=== PATIENT | female | born 1950 | race Caucasian/White ===

== ENCOUNTER 2017-02-13 17:06 | Emergency (ER) | payer MEDICARE, BC ==
[2017-02-13] MEDS ORDERED: Ondansetron INJ* 2 MG/ML VIAL IV ONE (18:03)
[2017-02-13] MEDS ORDERED: Morphine INJ* 4 MG/ML 1 ML SYRINGE IV ONE (18:03)
[2017-02-13] MEDS ORDERED: Iohexol 350* (CONTRAST) 500 ML MDV IV ONE (18:09)
[2017-02-13] MEDS: NS 0.9% 1000 ML* 2,000 ML IV ONE ×2 (18:12→18:13)
[2017-02-13 18:20] LABS: Hematocrit 40 % (35-47); Hemoglobin 13.4 g/dl (12.0-16.0); Mean Corpuscular HGB Conc 34 g/dl (31-36); Mean Corpuscular Hemoglobin 34 pg (27-31); Mean Corpuscular Volume 101 fL (80-97); Mean Platelet Volume 8 um3 (7.4-10.4); Red Blood Count 3.95 10^6/ul (4.0-5.4); Red Cell Distribution Width 13 % (10.5-15); White Blood Count 5.6 10^3/ul (3.5-10.8)
[2017-02-13 18:48] LABS: Troponin I 0.01 ng/mL (<0.04)
--- NOTE | 2017-02-13 18:56 | RAD ---
INDICATION: Abdominal aortic aneurysm evaluate for dissection. COMPARISON: Comparison is made with a prior CT of the abdomen and pelvis from January 08, 2009 and a prior abdominal ultrasound from May 29, 2015. TECHNIQUE: A CT angiogram of the chest, abdomen and pelvis was performed with intravenous contrast following intravenous injection of 97 ml of Omnipaque 350 nonionic contrast. Contiguous axial sections were obtained from the lung apices through the symphysis pubis. Images were reconstructed in the coronal and sagittal planes and in a 3-D volume rendered reformatted. FINDINGS: CT ANGIOGRAM OF THE CHEST: There is relatively homogeneous opacification of the pulmonary arteries. No intraluminal filling defect or pulmonary embolism is seen. The heart is upper limits of normal in size. No pericardial effusion is present. The descending thoracic aorta is mildly ectatic. There is homogeneous opacification of the thoracic aorta without evidence for dissection in the thoracic region. No significant enlarged mediastinal or hilar lymph nodes are seen. The lungs are clear. No pleural effusion is seen. CT ANGIOGRAM OF THE ABDOMEN AND PELVIS: There is an aneurysm of the infrarenal distal abdominal aorta. This measures a maximum of 4.6 cm in transverse dimension and measures 8.5 cm in length. The aorta previously measured a maximum of 3.4 cm in transverse dimension on the prior ultrasound study. There is a dissection of this aneurysm which extends into the proximal portion of both common iliac arteries which are ectatic. The celiac and superior mesenteric arteries are patent. There there is moderate narrowing of both arteries at their origins. The inferior mesenteric artery is also patent and arises from the region of the aortic dissection. There are single bilateral renal arteries without hemodynamically significant stenosis. The liver and spleen are normal in size without significant focal abnormality. No calcified gallstones are seen. The pancreas appears normal in size. There is mild pancreatic ductal distention. The kidneys and adrenal glands are normal in size. No hydronephrosis is seen. No significant focal renal abnormality is seen. The stomach, small and large bowel appear nondistended. There is a pessary device present. No free intraperitoneal air or fluid is seen. No significant focal osseous abnormality is seen. The results of this exam were discussed with the referring clinician. IMPRESSION: THERE IS A DISSECTING ANEURYSM OF THE DISTAL ABDOMINAL AORTA WHICH EXTENDS INTO THE COMMON ILIAC ARTERIES. THE ANEURYSM MEASURES A MAXIMUM OF 4.6 CM IN TRANSVERSE DIMENSION AND HAS INCREASED SIGNIFICANTLY IN SIZE FROM THE PRIOR STUDY. RECOMMEND VASCULAR SURGERY CONSULTATION.
[2017-02-13 19:27] LABS: Albumin 4.2 g/dL (3.2-5.2); BUN/Creatinine Ratio 20.3 (8-20); C Reactive Protein 55.91 mg/L (< 5.00); Calcium 9.4 mg/dL (8.6-10.3); EGFR African American 109.1 (>60); EGFR Non-African American 84.9 (>60); Potassium 3.7 mmol/L (3.5-5.0); Total Protein 7.2 g/dL (6.4-8.9)
--- NOTE | 2017-02-13 19:47 | ED ---
I, Oh,Yo, scribed for Summer Davis MD on 02/13/17 at 1807 . Abdominal Pain/Female - HPI Summary HPI Summary: This 67 y/o female presents to ED for bilat lower abd pain since 2 days ago. Pt had brief episode of abd pain that spontaneously resolved itself 3 days ago. Abd pain came back 2 days ago in the morning, and has been constant since then. Pain does not radiate to back. Negative n/v/d. Pain is worse with palpation. PMHx is significant for known AAA. Pt was referred to ED by her primary care provider, Dr. Jasmin Siddiqi, who was concerned that AAA had gotten bigger and pulsating. Other PMHx also includes HTN that is controlled by Lisinopril. FHx is positive for HTN to sister. Nonsmoker and nondrinker. - History of Current Complaint Chief Complaint: EDAbdPain Stated Complaint: LOWER ABD PAIN Time Seen by Provider: 02/13/17 17:45 Hx Obtained From: Patient, Medical Records Onset/Duration: Sudden Onset, Lasting Days, Still Present Timing: Constant Pain Intensity: 8 Pain Scale Used: 0-10 Numeric Location: Discrete At: RUQ, Discrete At: LUQ Radiates: No Character: Dull Aggravating Factor(s): Nothing Alleviating Factor(s): Nothing Associated Signs and Symptoms: Negative: Fever Allergies/Adverse Reactions: Allergies Allergy/AdvReac Type Severity Reaction Status Date / Time Levofloxacin [From Levaquin] Allergy RUPTURED Verified 04/12/16 14:34 SHOULDER TENDONS PMH/Surg Hx/FS Hx/Imm Hx Endocrine/Hematology History: Denies: Hx Diabetes, Hx Thyroid Disease Cardiovascular History: Reports: Hx Hypertension Denies: Hx Pacemaker/ICD Respiratory History: Denies: Hx Asthma, Hx Chronic Obstructive Pulmonary Disease (COPD) GI History: Denies: Hx Ulcer History: Reports: Hx Renal Disease - KIDNEY STONES Musculoskeletal History: Denies: Hx Rheumatoid Arthritis, Hx Osteoporosis Sensory History: Denies: Hx Hearing Aid Psychiatric History: Reports: Hx Panic Disorder - HAD ONE EPISODE - Cancer History Hx Chemotherapy: No Hx Radiation Therapy: No - Surgical History Surgery Procedure, Year, and Place: 2003&2008 ROTATOR CUFF SURGERY W/ANCHOR IN BILATERAL SHOULDERS/2010 ANKLE SX, 1975 BONE SPURS REMOVED KIERAN ANKLES, 1990 LAMINOTOMY L4-L5, 1995 HERNIA REPAIR, LITHOTRIPSY Infectious Disease History: Denies: Hx Hepatitis, Hx Human Immunodeficiency Virus (HIV), Traveled Outside the [place] in Last 30 Days - Family History Known Family History: Positive: Hypertension - Positive to sister - Social History Alcohol Use: None Hx Substance Use: No Substance Use Type: Reports: None Hx Tobacco Use: No Smoking Status (MU): Never Smoked Tobacco Review of Systems Negative: Fever Positive: Abdominal Pain - bilat lower abd pain. Negative: Vomiting, Nausea All Other Systems Reviewed And Are Negative: Yes Physical Exam Triage Information Reviewed: Yes Vital Signs On Initial Exam: Initial Vitals Temp Pulse Resp BP Pulse Ox 98.1 F 67 18 150/94 100 02/13/17 17:15 02/13/17 17:15 02/13/17 17:15 02/13/17 17:15 02/13/17 17:15 Vital Signs Reviewed: Yes Appearance: Positive: Well-Appearing, No Pain Distress Skin: Positive: Warm, Skin Color Reflects Adequate Perfusion, Dry Head/Face: Positive: Normal Head/Face Inspection Eyes: Positive: EOMI, MARCELA Neck: Positive: Supple, Nontender Respiratory/Lung Sounds: Positive: Clear to Auscultation, Breath Sounds Present Cardiovascular: Positive: RRR, Pulses are Symmetrical in both Upper and Lower Extremities. Negative: Murmur, Rub, Other - gallops Abdomen Description: Positive: Other: - tender over throbbing aorta over left Musculoskeletal: Positive: Strength/ROM Intact Neurological: Positive: Sensory/Motor Intact, Alert, Oriented to Person Place, Time Psychiatric: Positive: Affect/Mood Appropriate AVPU Assessment: Alert Diagnostics - Vital Signs Vital Signs Temp Pulse Resp BP Pulse Ox 02/13/17 17:15 98.1 F 67 18 150/94 100 - Laboratory Lab Results: Lab Results 02/13/17 02/13/17 02/13/17 Range/Units 18:10 18:10 18:10 WBC 5.6 (3.5-10.8) 10^3/ul RBC 3.95 L (4.0-5.4) 10^6/ul Hgb 13.4 (12.0-16.0) g/dl Hct 40 (35-47) % MCV 101 H (80-97) fL MCH 34 H (27-31) pg MCHC 34 (31-36) g/dl RDW 13 (10.5-15) % Plt Count 167 (150-450) 10^3/ul MPV 8 (7.4-10.4) um3 Neut % (Auto) 67.5 (38-83) % Lymph % (Auto) 20.9 L (25-47) % [place] % (Auto) 10.8 H (1-9) % Eos % (Auto) 0.4 (0-6) % Baso % (Auto) 0.4 (0-2) % Absolute Neuts (auto) 3.8 (1.5-7.7) 10^3/ul Absolute Lymphs (auto) 1.2 (1.0-4.8) 10^3/ul Absolute Monos (auto) 0.6 (0-0.8) 10^3/ul Absolute Eos (auto) 0 (0-0.6) 10^3/ul Absolute Basos (auto) 0 (0-0.2) 10^3/ul Absolute Nucleated RBC 0.01 10^3/ul Nucleated RBC % 0.1 Sodium 137 (133-145) mmol/L Potassium 3.7 (3.5-5.0) mmol/L Chloride 101 (101-111) mmol/L Carbon Dioxide 26 (22-32) mmol/L Anion Gap 10 (2-11) mmol/L BUN 14 (6-24) mg/dL Creatinine 0.69 (0.51-0.95) mg/dL Est GFR ( Amer) 109.1 (>60) Est GFR (Non-Af Amer) 84.9 (>60) BUN/Creatinine Ratio 20.3 H (8-20) Glucose 96 (70-100) mg/dL Calcium 9.4 (8.6-10.3) mg/dL Total Bilirubin 1.00 (0.2-1.0) mg/dL AST 32 (13-39) U/L ALT 32 (7-52) U/L Alkaline Phosphatase 52 (34-104) U/L Troponin I 0.01 (<0.04) ng/mL C-Reactive Protein 55.91 H (< 5.00) mg/L Total Protein 7.2 (6.4-8.9) g/dL Albumin 4.2 (3.2-5.2) g/dL Globulin 3.0 (2-4) g/dL Albumin/Globulin Ratio 1.4 (1-3) Blood Type O Positive Antibody Screen Negative Result Diagrams: 02/13/17 18:10 02/13/17 18:10 Lab Statement: Any lab studies that have been ordered have been reviewed, and results considered in the medical decision making process. - CT Chest/Ab/P CT Interpretation: Positive (See Comments) - THERE IS A DISSECTING ANEURYSM OF THE DISTAL ABDOMINAL AORTA WHICH EXTENDS INTO THE COMMON ILIAC ARTERIES. THE ANEURYSM MEASURES A MAXIMUM OF 4.6 CM IN TRANSVERSE DIMENSION AND HAS INCREASED SIGNIFICANTLY IN SIZE FROM THE PRIOR STUDY. RECOMMEND VASCULAR SURGERY CONSULTATION. CT Interpretation Completed By: Radiologist - EKG 0830 Cardiac Rate: NL - 74 bpm EKG Rhythm: Sinus Rhythm Re-Evaluation - Re-Evaluation First Eval Re-Evaluation Time: 18:55 Comment: MD in room to update pt on plan of care involving transfer to higher level of care. Pt and family member present at bedside is agreeable at this time. Abdominal Pain Fem Course/Dx - Course Course Of Treatment: 67 yo female sent in by pmd with tenderness over aorta that can be palpated and is pulsating. CTA shows dissection pt is being transferred to [facility] where Dr. Lora and Dr. Garcia have accepted the patient. blood pressure control was discussed and decided to wait - Diagnoses Provider Diagnoses: AAA (abdominal aortic aneurysm) - Provider Notifications Discussed Care Of Patient With: [facility] at [address] Cramer (Vascular at [facility], Admitting Doctor) at 1920 PM Instructed by Provider To: Transfer - [facility] Reason For Transfer: Specialty or service not available at [facility]. Discharge - Discharge Plan Condition: Stable Disposition: TRANS [facility] Referrals: Jasmin Siddiqi MD [Primary Care Provider] - The documentation as recorded by the Malcolm jeronimo Soohyun accurately reflects the service I personally performed and the decisions made by me, Summer Davis MD.
[2017-02-13] MEDS ORDERED: HYDROmorphone* 1 MG/ML 1 ML SYR IV ONE (19:50)
[2017-02-13 19:58] VITALS: BP 150/94
== END 2017-02-13 20:01 | disposition short-term general hospital (02) ==
LOC: ED 17:06
DX: I71.4 Abdominal aortic aneurysm, without rupture (principal); R10.84 Generalized abdominal pain
CPT/HCPCS: 36415; 71275; 74174; 80053; 84484; 85025; 86140; 86850; 86900; 86901; 93005; 96374; 96375; 99285; J1170; J2270; J2405; Q9967

== ENCOUNTER 2017-02-20 11:05 | Emergency (ER) | payer MEDICARE, BC ==
[2017-02-20 11:52] LABS: Hematocrit 32 % (35-47); Hemoglobin 10.7 g/dl (12.0-16.0); Mean Corpuscular HGB Conc 33 g/dl (31-36); Mean Corpuscular Hemoglobin 34 pg (27-31); Mean Corpuscular Volume 101 fL (80-97); Mean Platelet Volume 8 um3 (7.4-10.4); Red Blood Count 3.18 10^6/ul (4.0-5.4); Red Cell Distribution Width 13 % (10.5-15); White Blood Count 4.7 10^3/ul (3.5-10.8)
[2017-02-20 12:02] LABS: BUN/Creatinine Ratio 15.9 (8-20); Calcium 9.2 mg/dL (8.6-10.3); EGFR African American 121.2 (>60); EGFR Non-African American 94.3 (>60); Potassium 3.6 mmol/L (3.5-5.0)
--- NOTE | 2017-02-20 12:42 | RAD ---
Indication: Constipation, status post stent graft. Flat plate of the abdomen demonstrates aortic and by iliac stent graft in place. No aneurysmal dilatation is noted. No dilated loops of bowel are noted. Colon is filled with stool. IMPRESSION: No evidence of fecal stasis is noted. Bowel gas pattern is unremarkable.
[2017-02-20 14:52] VITALS: BP 158/86
--- NOTE | 2017-02-22 18:19 | ED ---
Charmaine Louise Matthew, scribed for Telly Caceres MD on 02/20/17 at 1211 . Abdominal Pain/Female - HPI Summary HPI Summary: A 67 y/o female presents to the ED with diffuse lower abdominal pain and constipation s/p AAA surgery on 02/13. Associated symptoms include abdominal distention, back pain - since yesterday, decreased appetite, and ankle swelling. The patient denies fever, chills, diaphoresis, and nausea. The patient went to [facility] ED yesterday after recommendation from the surgeon. She received a CT scan yesterday while at the [facility] ED, which showed a leak. Since the surgery, she started colace - twice a day, miralax once per day, and senna - once a day. She also did two fleet enema yesterday without relief. She has been drinking water. The patient took oxycodone on 02/18 and received morphine yesterday. - History of Current Complaint Chief Complaint: EDGeneral Stated Complaint: WEAK, ABD PAIN , BACK PAIN Time Seen by Provider: 02/20/17 11:22 Hx Obtained From: Patient ?: Yes Onset/Duration: Lasting Weeks, Still Present Timing: Constant Severity Initially: Moderate Severity Currently: Moderate Pain Intensity: 5 Pain Scale Used: 0-10 Numeric Location: Diffuse - lower abdominal pain Aggravating Factor(s): Nothing Alleviating Factor(s): Nothing Associated Signs and Symptoms: Positive: Back Pain, Constipation, Decreased Appetite, Other: - distended abdomen, ankle swelling. Negative: Fever, Chest Pain, Dizzy, Nausea, Vomiting Allergies/Adverse Reactions: Allergies Allergy/AdvReac Type Severity Reaction Status Date / Time Levofloxacin [From Levaquin] Allergy RUPTURED Verified 02/20/17 11:09 SHOULDER TENDONS PMH/Surg Hx/FS Hx/Imm Hx Endocrine/Hematology History: Denies: Hx Diabetes, Hx Thyroid Disease Cardiovascular History: Reports: Hx Hypertension Denies: Hx Pacemaker/ICD Respiratory History: Denies: Hx Asthma, Hx Chronic Obstructive Pulmonary Disease (COPD) GI History: Denies: Hx Ulcer History: Reports: Hx Renal Disease - KIDNEY STONES Musculoskeletal History: Denies: Hx Rheumatoid Arthritis, Hx Osteoporosis Sensory History: Denies: Hx Hearing Aid Psychiatric History: Reports: Hx Panic Disorder - HAD ONE EPISODE - Cancer History Hx Chemotherapy: No Hx Radiation Therapy: No - Surgical History Surgery Procedure, Year, and Place: 2003&2008 ROTATOR CUFF SURGERY W/ANCHOR IN BILATERAL SHOULDERS// 2010 ANKLE SX, 1975 BONE SPURS REMOVED KIERAN ANKLES, 1990 LAMINOTOMY L4-L5, 1995 HERNIA REPAIR, LITHOTRIPSY Infectious Disease History: No Infectious Disease History: Denies: Hx Hepatitis, Hx Human Immunodeficiency Virus (HIV), Traveled Outside the [place] in Last 30 Days - Family History Known Family History: Positive: Hypertension - Positive to sister - Social History Alcohol Use: None Hx Substance Use: No Substance Use Type: Reports: None Hx Tobacco Use: No Smoking Status (MU): Never Smoked Tobacco Review of Systems Constitutional: Other - decreased appetite Negative: Fever, Chills, Skin Diaphoresis Eyes: Negative Negative: Erythema ENT: Negative Negative: Sore Throat Cardiovascular: Negative Negative: Chest Pain Respiratory: Negative Negative: Shortness Of Breath, Cough Gastrointestinal: Other - constipation; distended abdomen Positive: Abdominal Pain - diffuse lower abdominal pain . Negative: Vomiting, Nausea Genitourinary: Negative Negative: dysuria, hematuria Positive: Myalgia - back pain, Edema - ankle swelling Skin: Negative Negative: Rash Neurological: Negative Negative: Headache Psychological: Normal All Other Systems Reviewed And Are Negative: Yes Physical Exam Triage Information Reviewed: Yes Vital Signs On Initial Exam: Initial Vitals Temp Pulse Resp BP Pulse Ox 97.9 F 78 16 142/88 100 02/20/17 11:11 02/20/17 11:11 02/20/17 11:11 02/20/17 11:11 02/20/17 11:11 Vital Signs Reviewed: Yes Appearance: Positive: Well-Appearing, No Pain Distress Skin: Positive: Warm, Dry Head/Face: Positive: Other - Normocephalic; Atraumatic Eyes: Positive: Conjunctiva Clear ENT: Positive: Normal ENT inspection Dental: Negative: Cervical Lymphadenopathy Neck: Positive: No Lymphadenopathy, Other: - Full ROM; No JVD Respiratory/Lung Sounds: Positive: Other - Normal Effort; No respiratory distress. Negative: Rales, Rhonchi, Stridor, Tracheal Deviation, Wheezes Cardiovascular: Positive: RRR, Other - Rhythm regular, rate normal, Heart sounds normal; Intact distal pulses; The pedal pulses are 2+ and symmetric. Radial pulses are 2+ and symmetric. Negative: Murmur Abdomen Description: Positive: Nontender, Soft, Other: - No Rebound. Negative: Distended, Guarding Bowel Sounds: Positive: Present Musculoskeletal: Negative: Edema Left, Edema Right Neurological: Positive: Alert, Oriented to Person Place, Time Psychiatric: Positive: Affect/Mood Appropriate Procedures - Procedure Summary Procedure Summary: Indication: constipation More was my female running specialist, well lubricate finger inserted into the rectum. Small amount of soft stool was removed otherwise she had an empty vault. Diagnostics - Vital Signs Vital Signs Temp Pulse Resp BP Pulse Ox 02/20/17 11:11 97.9 F 78 16 142/88 100 - Laboratory Lab Results: Lab Results 02/20/17 02/20/17 Range/Units 11:30 11:30 WBC 4.7 (3.5-10.8) 10^3/ul RBC 3.18 L (4.0-5.4) 10^6/ul Hgb 10.7 L (12.0-16.0) g/dl Hct 32 L (35-47) % MCV 101 H (80-97) fL MCH 34 H (27-31) pg MCHC 33 (31-36) g/dl RDW 13 (10.5-15) % Plt Count 200 (150-450) 10^3/ul MPV 8 (7.4-10.4) um3 Sodium 135 (133-145) mmol/L Potassium 3.6 (3.5-5.0) mmol/L Chloride 97 L (101-111) mmol/L Carbon Dioxide 30 (22-32) mmol/L Anion Gap 8 (2-11) mmol/L BUN 10 (6-24) mg/dL Creatinine 0.63 (0.51-0.95) mg/dL Est GFR ( Amer) 121.2 (>60) Est GFR (Non-Af Amer) 94.3 (>60) BUN/Creatinine Ratio 15.9 (8-20) Glucose 101 H (70-100) mg/dL Calcium 9.2 (8.6-10.3) mg/dL Result Diagrams: 02/20/17 11:30 02/20/17 11:30 Lab Statement: Any lab studies that have been ordered have been reviewed, and results considered in the medical decision making process. - Radiology Abdominal XR Xray Interpretation: No Acute Changes - IMPRESSION: No evidence of fecal stasis is noted. Bowel gas pattern is unremarkable. Radiology Interpretation Completed By: Radiologist Abdominal Pain Fem Course/Dx - Course Course Of Treatment: A 67 y/o female presents to the ED with diffuse lower abdominal pain and constipation s/p AAA surgery on 02/13. Associated symptoms include abdominal distention, back pain - since yesterday, decreased appetite, and ankle swelling. The patient denies fever, chills, diaphoresis, and nausea. The patient went to [facility] ED yesterday after recommendation from the surgeon. She received a CT scan yesterday while at the [facility] ED, which showed a leak. Since the surgery, she started colace - twice a day, miralax once per day, and senna - once a day. She also did two fleet enema yesterday without relief. She has been drinking water. The patient took oxycodone on 02/18 and received morphine yesterday. Abd XR showed no evidence of fecal stasis is noted. Bowel gas pattern is unremarkable. Stool disimpaction was performed with only a small amount of soft stool removed. Labs were reviewed. In the ED course, the patient was given a soap suds enema. Discussed the case with Dr. Allison who recommended stool disimpaction. Also discussed the case with Dr. Siddiqi who recommends increased in miralax to twice daily, senna to twice daily, and prune juice. She also recommends a general increase in fluid intake. The patient will be discharged home with follow-up with her PCP and Dr. Murillo. Blood counts are stable from yesterdays labs at [facility] . Vascular surgeon Dr. Allison recommend outpatient follow-up. The patient feels better after spontaneous BM and notices her abdomen is smaller. - Diagnoses Provider Diagnoses: Constipation - Provider Notifications Discussed Care Of Patient With: Dr. Allison ([facility]) at 15:25 -- She noted stool on the CT A/P preformed yesterday and recommended stool disimpaction. Dr. Siddiqi ([facility]) at 16:05 -- Notified of patient's history. She recommends increased in miralax to twice daily, senna to twice daily, and prune juice. She also recommends a general increase in fluid intake. Discharge - Discharge Plan Condition: Stable Disposition: HOME Patient Education Materials: Constipation (ED) Referrals: Jasmin Siddiqi MD [Primary Care Provider] - 3 Days Reshma Murillo MD [Medical Doctor] - Additional Instructions: Please follow-up with your primary care physician and Dr. Murillo. Please increase your miralax to twice daily, senna to twice daily, and drink prune juice. Also please increase your total fluid intake. The documentation as recorded by the Charmaine jeronimo Matthew accurately reflects the service I personally performed and the decisions made by me, Telly Caceres MD.
== END 2017-02-20 16:33 | disposition home or self-care (01) ==
LOC: ED 11:05
DX: K59.00 Constipation, unspecified (principal); R10.30 Lower abdominal pain, unspecified; M54.9 Dorsalgia, unspecified
CPT/HCPCS: 36415; 74000; 80048; 85027; 99283

== ENCOUNTER 2017-02-23 17:34 | Inpatient (IN) | payer MEDICARE, BC ==
[~2017-02-23 17:34] MED LIST: Morphine INJ* 4 MG/ML 1 ML SYRINGE ONE
[2017-02-23] MEDS ORDERED: Morphine INJ* 2 MG/ML 1 ML SYRINGE IV PRN (17:41)
[2017-02-23] MEDS: Morphine INJ* 4 MG/ML 1 ML SYRINGE IV PRN ×2 (17:55→22:13)
[2017-02-23 18:00] LABS: Hematocrit 32 % (35-47); Hemoglobin 10.7 g/dl (12.0-16.0); Mean Corpuscular HGB Conc 33 g/dl (31-36); Mean Corpuscular Hemoglobin 34 pg (27-31); Mean Corpuscular Volume 102 fL (80-97); Mean Platelet Volume 8 um3 (7.4-10.4); Red Blood Count 3.16 10^6/ul (4.0-5.4); Red Cell Distribution Width 13 % (10.5-15); White Blood Count 5.2 10^3/ul (3.5-10.8)
[2017-02-23 18:16] LABS: Albumin 3.8 g/dL (3.2-5.2); BUN/Creatinine Ratio 6.5 (8-20); C Reactive Protein 42.41 mg/L (< 5.00); Calcium 9.1 mg/dL (8.6-10.3); EGFR African American 123.5 (>60); Potassium 3.9 mmol/L (3.5-5.0); Total Bilirubin 0.6 mg/dL (0.2-1.0); Total Protein 6.8 g/dL (6.4-8.9)
[2017-02-23] MEDS: NS 0.9% w/ 20 Meq KCL 1000 ML* 1,000 ML IV SCH (18:46)
[2017-02-23] MEDS ORDERED: Ondansetron INJ* 2 MG/ML VIAL IV PRN (19:10)
--- NOTE | 2017-02-23 23:32 | CONS ---
GASTROENTEROLOGY CONSULT: DATE: 02/23/17 REFERRING PHYSICIAN: Jasmin Siddiqi REASON FOR CONSULTATION: Persisting lower abdominal pain following stent treatment of an infrarenal dissecting aortic aneurysm on 02/14/17 HISTORY: This athletic slender woman, lifetime nonsmoker, was known to have a small aneurysm and then developed abdominal pain on 02/10/17, a Monday. It came on while she was swimming. She toughed it out over weekend and then saw Dr Jasmin Siddiqi on 02/13/17 and with her background, it seemed evident she should have a CT abd and go to [facility] immediately. She was helicoptered there in the early evening and a dissection was demonstrated. The next day underwent a graft placement by Dr Lerma. She states that postop day 1 she complained of lower abdominal symmetric, achy discomfort right from the beginning and she had on postop day [address] abd at [facility]. She thinks it was fine and she was sent home later that evening. Ever since, she has just felt an achy distress in the lower abd. She has been eating reduced amounts, but not vomiting and there has been no fever. She felt a little bit distended, but her abdomen has been soft. She saw Dr Siddiqi a couple of times. As she had not gone to the bathroom for over a week, two days ago she took prune juice, other laxatives, and finally bottle of mag citrate and had a major blow out of liquid material on Monday, and she felt much better after that. Then in the evening, that same day, she began having the same lower abdominal distress. It is a lower abdominal pelvic brim area symmetric, distress that sometimes goes around or through to the back. She is not having any trouble with body position or bending the legs or anything that seems mechanical / structural. Urination is fine. She has not passed any blood except the scant amount about 2 hours ago that just seemed to be on the tissue. She has had prior colonoscopies with a rather floppy angulated bowel flexures found as expected with her body habitus and those exams were December 2013, October 2007, and February 2002 with couple of hyperplastic right colonic polyps found at the 2001 exam. There is a probable maternal family history of colon cancer represented by metastatic liver disease of uncertain primary. She has no chronic gastrointestinal problems in general. PAST MEDICAL HISTORY: 1. Abdominal aneurysm - risk factors essentially absent and no obvious explanation. 2. History of renal stones, undergoing ESWL per Dr Jaramillo. 3. Lumbar back surgery in 1990. 4. Right inguinal hernia repair in 1995 - blames it on shoveling out a horse barn 5. Heel bone spur surgeries, 1975 and 1976. 6. Hypertension - GÓMEZ inhibitor only. 7. History of rotator cuff surgery. 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 She exercises regularly often via swimming. REVIEW OF SYSTEMS: She eats a general diet, fairly healthy and says she does not hold back, "I eat like a horse." Her bowel pattern is regular and without bleeding. No history of neurologic problems, vertigo, seizures, TIA, hemoptysis , pneumonia, hepatitis, or bleeding disorder. PHYSICAL EXAM: She is a healthy-appearing, slender woman, in no overt distress at this time, about 2 hours after a dose of morphine. She says that makes things quite acceptable. She is afebrile at 98.6, pulse 67, blood pressure 152/ 79. HEENT exam is unremarkable. There is no icterus. She has no adenopathy. Her lungs are clear. Heart sounds are regular. Breast and pelvic exams are deferred. The abdomen is flat, symmetric, with a minimal umbilical hernia. Bowel sounds are active, may be a little excessive ,but not high pitched at all. There are no rushes or rumbles. The abdomen feels a little distended in the lower abdomen, but just minimally. The abdomen is soft, not with any tenderness to mild to moderate palpation. Perianal inspection is normal. Rectal reveals just serous kim granular fluid and a pessary palpation of which is not tender. LABS: CBC shows hemoglobin 10.7, hematocrit 32, white count 5.2. They are essentially unchanged from 3 days ago. Before the graft insertion, her hemoglobin was 13.4. Chemistries are unremarkable. BUN 4, creatinine 0.6. LFTs are normal. Albumin 3.8, CRP 42.4, down from 55.9 on 02/13/17, her original day of presentation with pain. CT review - via phone describing the CT sequences with IV contrast in the arterial phase. The SMA and celiac are robust. Inferior mesenteric artery can be seen as a thready vessel with clearly normal images from the preprocedure CT on 02/13/17. There was a little bit of back flowing to the aneurysm sac - a small leak. IMPRESSION: This 67-year-old woman, who 9 days ago had a dissecting aneurysm stented, now complains of a bilaterally symmetric lower abdominal pain. There is really nothing in the history as to exacerbating factors or circumstances pointing to any other system other than the colon as the source. The usual concern with aneurysm care is the GUNJAN and its status is questionable on the CTA. It would be unusual for a colon ischemia to extend this long without resolving or progressing one way or the other. Concern about other colon issues is clearly greatly lessened by her having had 3 colonoscopies over the last 15 years with no major polyp seen at all. Further decision making might be enhanced by an unprepped flexible sigmoidoscopy and noninvasive arterial pressure recordings of the legs. Given the lack of fever, leukocytosis, or dramatic rectal bleeding, the colon mucosa might very well be intact and thus subtle amounts of ischemia may not be diagnosable endoscopically. [id number]/CPS #: [id number] MINNA
--- NOTE | 2017-02-24 01:29 | HP ---
HISTORY AND PHYSICAL: DATE OF ADMISSION: 02/23/17 HISTORY: Melony Briscoe is a 67-year-old woman admitted with abdominal pain. The patient had a known abdominal aortic aneurysm 3.4 cm when checked on . She had had previous ultrasounds over the last several years and that had remained unchanged over several years. She presented to my office on 02/13/17 with abdominal pain which had started on 02/10/17, but then resolved spontaneously and then this began again the following day, got worse until she presented to my office on 02/13/17. On exam she has a pulsating mass in her left upper quadrant with a loud bruit across her abdomen. She was sent to the emergency room where she was found to have a dissection of an aneurysm of the infrarenal distal abdominal aorta. The aorta had measured 4.6 cm in transverse dimension and 8.5 cm in length. It was a dissection extending into the proximal portion of both common iliac arteries which were ectatic. She was airlifted to [facility] and the following day, Dr. Lerma did an endovascular repair. She seemed to do well with this, but developed constipation and did not have a bowel movement following surgery. She became quite uncomfortable and on 02/19/17, she presented to the [facility] Emergency Room. There she underwent a CTA which showed that there was a small leak in the graft, but this was not felt to be consequential, did not require further action. She was thought to be constipated. She tried various laxatives. She then presented [place] [facility] [place]. There they told her to take additional laxatives which did not work. I then saw her the following day, 02/21/17. I instructed her to take more MiraLAX, more Senokot and a Dulcolax suppository. With this regimen, she had a large amount of liquid stool which she expelled on the morning of 02/22/17. I spoke to her later in the day, (yesterday), and she was feeling quite well. She had been eating very little and started to eat more. Then last night the pain recurred and got worse over the course of the night. She presented to my office this morning with lower abdominal pain. On exam, her abdomen was soft. I sent her for another CAT scan to see if she had constipation. The contrast was followed through her bowel to the rectum and there did not appear to be any obstruction or large amounts of stool. She is being admitted at this time. She does report that she did have a little bit of blood in the stool. CAT scan also showed no significant change in the small amount of leak that was noted. PAST MEDICAL HISTORY: Otherwise significant for the following medical problems: 1. Hypertension. 2. Nephrolithiasis. 3. Pelvic prolapse for which she has a pessary. 4. Headaches, after concussion 04/06. 5. Osteoarthritis. 6. Varicose veins. PAST SURGICAL HISTORY: Previous surgeries include in 1988 L4-5 percutaneous diskectomy, 1990 lumbar laminectomy for L4-5 herniated disk, 1995 hernia repair , 2003 left shoulder surgery arthroscopy, rotator cuff repair, subacromial decompression acromioplasty and insertion of PainBuster catheter. CURRENT MEDICATIONS: 1. Lisinopril 2.5 mg daily. 2. Acetaminophen 2 q.4 h. p.r.n. pain. 3. Advil p.r.n. 4. Estradiol vaginal cream 1 g weekly. Recently she has been taking MiraLAX, Senokot, Dulcolax suppositories. ALLERGIES: To LEVAQUIN. FAMILY HISTORY: Positive for cancer. Mother had liver cancer. Father had kidney cancer. Mother's cancer may have been metastatic from elsewhere. HABITS: Tobacco none. EtOH none. SOCIAL AND PERSONAL HISTORY: The patient is . She lives in her own home. Her is with her in the recent appointments. She has 2 grown daughters who live out of the area. REVIEW OF SYSTEMS: Generally, prior to the present illness she had been feeling quite well. Her appetite is excellent usually, but not good with the present illness. Her weight has gone down with the present illness, usually stable. She denied fevers, chills or sweats. She has not been sleeping well due to pain. 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 Skin: She has had problems with rash and pruritus in the past. Not a problem recently. HEENT: She has occasional wavy vision. Nodes: Negative. Heme: Negative. Breasts: Negative. Endocrine: Negative. Respiratory: Negative. Cardiovascular: Negative except as above. GI: See above. She has had some vomiting. : Negative. TABLE ASSEMBLER METAL: Pessary as noted above. Musculoskeletal: Chronic pain in the neck, shoulders, knees, ankles. Neuro: She has had headaches since having a concussion in March 2015. Psychiatric: Negative. PHYSICAL EXAMINATION GENERAL: She is a slender female appearing uncomfortable due to abdominal pain. VITAL SIGNS: Blood pressure 120/85, pulse 64, respirations 16, temperature 97.7. SKIN: Warm and dry. There are ecchymosis around her groins and upper thighs, pubic area. HEENT: Atraumatic, normocephalic. Full EOMs. Mouth: Pharynx unremarkable. NECK: Supple. Nodes without adenopathy. CHEST: Clear. HEART: Normal S1, S2. There are no murmurs, gallops or rubs. Pulses are full throughout. ABDOMEN: Soft without specific tenderness. No hepatosplenomegaly. No hernias or masses. She has punctures marked from recent surgeries were. Bowel sounds are present and might be slightly hypoactive. EXTREMITIES: Show no clubbing, cyanosis or edema. She has varicose veins. MUSCULOSKELETAL: She has right clavicular deformity. She has waisting of the right calf. NEUROLOGIC: Without gross focal or lateralizing signs. Detailed neurologic exam was not performed. DIAGNOSTIC STUDIES/LABORATORY DATA: CBC: WBC 5.2, H and H 10.7/32, MCV 102, PLT 240,000. Chemistries: Sodium 134, potassium 3.9, chloride 97, CO2 29, BUN and creatinine 4/0.62, glucose 114. Rest of the comprehensive metabolic panel is within normal limits. C-reactive is elevated at 42.41. 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 There is distended inferior vena cava noted. There is no evidence of bowel obstruction. There is fluid filled colon. IMPRESSION: The patient with abdominal pain. I have discussed the case with Dr. Lerma and Dr. Jones from GI. The plan is to admit her. Pain control will be achieved with morphine. She is a full code. She will not be given systemic DVT prophylaxis because of possible procedures being done. She may have ischemic bowel. She will have a flexible sigmoidoscopy in the morning. She will be given ondansetron for nausea. CC: Dr. Lerma * [id number]/CPS #: [id number] [facility]
[2017-02-24] MEDS: Morphine INJ* 4 MG/ML 1 ML SYRINGE IV PRN (02:41)
[2017-02-24] MEDS: NS 0.9% w/ 20 Meq KCL 1000 ML* 1,000 ML IV SCH (05:36)
[2017-02-24 06:45] LABS: Hematocrit 31 % (35-47); Hemoglobin 10.5 g/dl (12.0-16.0); Mean Corpuscular HGB Conc 34 g/dl (31-36); Mean Corpuscular Hemoglobin 34 pg (27-31); Mean Corpuscular Volume 101 fL (80-97); Mean Platelet Volume 8 um3 (7.4-10.4); Red Blood Count 3.09 10^6/ul (4.0-5.4); Red Cell Distribution Width 13 % (10.5-15); White Blood Count 4.1 10^3/ul (3.5-10.8)
[2017-02-24 07:02] LABS: BUN/Creatinine Ratio 6.5 (8-20); C Reactive Protein 38.07 mg/L (< 5.00); Calcium 8.7 mg/dL (8.6-10.3); EGFR African American 123.5 (>60)
[2017-02-24] MEDS ORDERED: Midazolam* 1 MG/ML 10 ML VIAL (10 MG) ONE (07:56)
[2017-02-24] MEDS ORDERED: Meperidine SYRINGE* 50 MG/ML ONE (07:56)
--- NOTE | 2017-02-24 08:37 | RAD ---
INDICATION: Abdominal pain. COMPARISON: Comparison is made with a prior CTA of the abdomen and pelvis from one day earlier. TECHNIQUE: Supine and upright views of the abdomen were obtained. FINDINGS: The small bowel appears nondistended. There is mild gaseous distention of the colon. Note is made of an air-fluid level within the colon. There is no change from the prior study. Residual contrast is noted within the small bowel and colon from the prior CT study. No free intraperitoneal air is seen. Note is made of an endovascular aorto-biiliac stent graft. IMPRESSION: NO EVIDENCE FOR OBSTRUCTION.
[2017-02-24] MEDS ORDERED: Lisinopril TAB* 5 MG PO SCH (09:00)
[2017-02-24] MEDS ORDERED: oxyCODONE TAB* 5 MG TAB PO PRN ×2 (10:11)
[2017-02-24 21:12] VITALS: BP 120/75
--- NOTE | 2017-03-16 19:19 | PRO ---
DATE: 02/24/17 (Inpatient - room #332-01) REFERRING PHYSICIAN: Jasmin Siddiqi MD* PROCEDURE: Colonoscopy and ileoscopy. INDICATION: This 67-year-old woman, who recently had endovascular aneurysm repair, has had fluctuating but sometimes agonizing complaints of lower abdominal symmetric pain since the endovascular repair. She has had a variable response to laxatives. There has been no fever and no rectal bleeding. Because of some sense of bloating on exam, in fact she has had many laxatives and the focus of the exam was on possible inferior mesenteric artery distribution ischemia, no preparation was given for this exam. ENDOSCOPIST: Dr. Jones. MEDICATIONS: Midazolam 5.5, meperidine 37.5. FINDINGS: She is a slender, talkative, and interactive older woman, in no overt distress. Her abdomen is mildly rounded. Bowel sounds are quite active. There is no guarding or rigidity. Digital rectal is normal. Initial views show normal mucosa and no areas of erythema or exudate. The adult scope was passed with some difficulty getting around the redundant floppy loops, but steady progress was made and there was only a liquid stool and no impaction. The colonic mucosa remained normal throughout. The transverse, hepatic flexure, right colon, and cecal cap were all normal. The terminal ileum was normal for 10 cm. Coming back from the cecum, no abnormalities were noted. A floppiness and redundancy of the bowel was as previously described. IMPRESSION: 1. Normal colonoscopy and ileoscopy. 2. Lower abdominal pain - probably on the basis of an underlying functional bowel process and recent stressors. [id number]/CPS #: [id number] MTDD
== END 2017-02-24 19:20 | disposition home or self-care (01) | DRG 392 ==
LOC: SSU 17:35
PROVIDERS: ADMIT Internal Medicine Geriatric Medicine; ATTEND Internal Medicine Geriatric Medicine
PROC: 0DJD8ZZ Inspection of Lower Intestinal Tract, Via Natural or Artificial Opening Endoscopic (ICD-10-PCS; principal; 2017-02-24)
DX: K59.09 Other constipation (principal); Q43.8 Other specified congenital malformations of intestine; I10 Essential (primary) hypertension; N20.0 Calculus of kidney; I83.90 Asymptomatic varicose veins of unspecified lower extremity; I71.4 Abdominal aortic aneurysm, without rupture; Z98.890 Other specified postprocedural states
CPT/HCPCS: 36415; 74000; 74020; 74174; 80048; 80053; 85027; 86140; A9270-GY; J2250; J2270; Q9967

== ENCOUNTER 2018-01-15 17:50 | Emergency (ER) | payer MEDICARE, BC ==
[2018-01-15 19:33] LABS: ABS Basophils 0 10^3/ul (0-0.2); ABS Eosinophils 0.1 10^3/ul (0-0.6); ABS Lymphocytes 1.6 10^3/ul (1.0-4.8); ABS Monocytes 0.4 10^3/ul (0-0.8); ABS Neutrophils 1.7 10^3/ul (1.5-7.7); ABS Nucleated RBC 0 10^3/ul; Eosinophil % 1.4 % (0-6); Hematocrit 39 % (35-47); Hemoglobin 13.1 g/dl (12.0-16.0); Lymphocyte % 43.1 % (25-47); Mean Corpuscular HGB Conc 34 g/dl (31-36); Mean Corpuscular Hemoglobin 34 pg (27-31); Mean Corpuscular Volume 101 fL (80-97); Mean Platelet Volume 8.1 um3 (7.4-10.4); Nucleated Red Blood Cells % 0.2; Platelet Count 184 10^3/ul (150-450); Red Blood Count 3.82 10^6/ul (4.0-5.4); Red Cell Distribution Width 14 % (10.5-15); White Blood Count 3.7 10^3/ul (3.5-10.8)
[2018-01-15 19:53] LABS: INR 0.94 (0.77-1.02)
[2018-01-15 19:57] LABS: EGFR Non-African American 69.5 (>60)
[2018-01-15] MEDS ORDERED: Iohexol 350* (CONTRAST) 500 ML MDV IV ONE (20:39)
--- NOTE | 2018-01-15 21:50 | RAD ---
INDICATION: Chest pain and elevated d-dimer. COMPARISON: Most recent comparison CTAs dated February 13, 2017 TECHNIQUE: Axial source images were acquired following the administration of 61 mL Omnipaque [address] angiographic technique. Coronal and sagittal reconstructed images were constructed and reviewed. FINDINGS: There there are no filling defects in the pulmonary arteries to indicate acute pulmonary embolic disease. The lungs exhibit diffuse centrilobular emphysematous changes. There are no focal infiltrates or effusions. There are no pulmonary parenchymal masses. The heart is normal in size. There is no evidence of pericardial effusion. There is no evidence of aortic aneurysm or dissection. There is no mediastinal, hilar, or axillary lymphadenopathy. Degenerative changes of the thoracic spine includes loss of intervertebral disc height. Aortic stent graft is partially visualized just below the branch point of the superior mesenteric artery. IMPRESSION: 1. No CT of evidence of pulmonary embolism. 2. Chronic findings as described above.
[2018-01-15 23:30] VITALS: BP 119/72
--- NOTE | 2018-01-17 18:36 | ED ---
Santiago Louise Stephanie, scribed for Scott Neves MD on 01/15/18 at 202 . HPI Chest Pain - HPI Summary HPI Summary: The pt is a 67 y/o F presenting to the ED with c/o CP that began on 01/06/18. She states the CP was intermittent at the time of onset but became constant yesterday and is currently constant. She reports her nurse practitioner completed blood work and her D-dimer was elevated. The CP began during exertion on a stationary bike. She reports her L side of her chest has been feeling differently than the R side. When she swims she does not feel any CP. Her CP feels heavy when she takes a deep breath and she states that it feels like she is not getting enough air in her L lung. The pt denies abd pain and bilateral LE pain or edema. - History of Current Complaint Chief Complaint: EDGeneral Time Seen by Provider: 01/15/18 20:23 Hx Obtained From: Patient Onset/Duration: Started Days Ago - 10, Still Present Timing: Constant - since 01/14/18 Current Severity: Moderate Pain Intensity: 4 Pain Scale Used: 0-10 Numeric Chest Pain Location: Left Anterior Chest Pain Radiates: No Character: Heaviness Aggravating Factor(s): Exertion Alleviating Factor(s): Rest Associated Signs and Symptoms: Positive: Chest Pain, Other: - inability to take in enough air in L lung. Negative: bilateral LE pain. Negative: Abdominal Pain , Edema - LE - Additional Pertinent History Primary Care Physician: [id number] - Allergy/Home Medications Allergies/Adverse Reactions: Allergies Allergy/AdvReac Type Severity Reaction Status Date / Time levofloxacin [From Levaquin] Allergy See Comment Verified 01/15/18 18:07 Home Medications: Home Medications Estradiol VAG CM (NF) [Estrace VAG CM (NF)] 1 applic VAGINAL .TWICE TIMES A WEEK 01/15/18 [History Confirmed 01/15/18] PMH/Surg Hx/FS Hx/Imm Hx Endocrine/Hematology History: Denies: Hx Diabetes, Hx Thyroid Disease Cardiovascular History: Reports: Hx Aneurysm - AAA diagnosed 5 yrs ago, resent dissecting AAA repair, Hx Hypertension Denies: Hx Pacemaker/ICD Respiratory History: Denies: Hx Asthma, Hx Chronic Obstructive Pulmonary Disease (COPD) GI History: Denies: Hx Ulcer History: Reports: Hx Kidney Stones, Hx Renal Disease - KIDNEY STONES, Other Problems/Disorders - pessary for pelvic organ prolapse Musculoskeletal History: Denies: Hx Rheumatoid Arthritis, Hx Osteoporosis Sensory History: Reports: Hx Contacts or Glasses Denies: Hx Hearing Aid Opthamlomology History: Reports: Hx Contacts or Glasses Psychiatric History: Reports: Hx Panic Disorder - HAD ONE EPISODE - Cancer History Hx Chemotherapy: No Hx Radiation Therapy: No - Surgical History Surgery Procedure, Year, and Place: 2003&2008 ROTATOR CUFF SURGERY W/ANCHOR IN BILATERAL SHOULDERS2010 ANKLE SX, 1975 BONE SPURS REMOVED KIERAN ANKLES, 1990 LAMINOTOMY L4-L5, 1995 HERNIA REPAIR, LITHOTRIPSY Infectious Disease History: No Infectious Disease History: Denies: Hx Hepatitis, Hx Human Immunodeficiency Virus (HIV), Traveled Outside the [place] in Last 30 Days - Family History Known Family History: Positive: Hypertension - Positive to sister - Social History Occupation: Retired Lives: With Family Alcohol Use: Rare Hx Substance Use: No Substance Use Type: Reports: None Hx Tobacco Use: No Smoking Status (MU): Never Smoked Tobacco Do You Chew or Dip Tobacco: No Have You Chewed or Dipped Tobacco in the LAST YEAR: No Have You Smoked in the Last Year: No Review of Systems Positive: Chest Pain Positive: Other - inability to take in enough air Negative: Abdominal Pain Positive: Other - Negative: bilateral LE pain. Negative: Edema - bilateral LE All Other Systems Reviewed And Are Negative: Yes Physical Exam - Summary Physical Exam Summary: Appearance: Well-appearing, Well-nourished Skin: Warm Eyes: Normal ENT: Normal Neck: Supple, nontender, no JVD bilaterally Respiratory: Clear to auscultation Cardiovascular: Normal S1, S2. No murmurs. Normal distal pulses in tibial and radial bilaterally. Strong pulses in bilateral, radial, tibial and pedal areas. Abdomen: Soft, nontender, minimal pulsicity consistent with history and baseline Musculoskeletal: Normal, Strength/ROM Intact Neurological: Normal, A&Ox3 Psychiatric: Normal General: No acute distress Triage Information Reviewed: Yes Vital Signs On Initial Exam: Initial Vitals Temp Pulse Resp BP Pulse Ox 98.9 F 65 16 152/98 98 01/15/18 18:03 01/15/18 18:03 01/15/18 18:03 01/15/18 18:03 01/15/18 18:03 Vital Signs Reviewed: Yes Diagnostics - Vital Signs Vital Signs Temp Pulse Resp BP Pulse Ox 01/15/18 19:53 59 14 100 01/15/18 19:52 139/78 01/15/18 18:03 98.9 F 65 16 152/98 98 - Laboratory Lab Results: Lab Results 01/15/18 01/15/18 01/15/18 Range/Units 19:15 19:15 19:15 WBC 3.7 (3.5-10.8) 10^3/ul RBC 3.82 L (4.0-5.4) 10^6/ul Hgb 13.1 (12.0-16.0) g/dl Hct 39 (35-47) % MCV 101 H (80-97) fL MCH 34 H (27-31) pg MCHC 34 (31-36) g/dl RDW 14 (10.5-15) % Plt Count 184 (150-450) 10^3/ul MPV 8.1 (7.4-10.4) um3 Neut % (Auto) 45.2 (38-83) % Lymph % (Auto) 43.1 (25-47) % [place] % (Auto) 9.6 H (0-7) % Eos % (Auto) 1.4 (0-6) % Baso % (Auto) 0.7 (0-2) % Absolute Neuts (auto) 1.7 (1.5-7.7) 10^3/ul Absolute Lymphs (auto) 1.6 (1.0-4.8) 10^3/ul Absolute Monos (auto) 0.4 (0-0.8) 10^3/ul Absolute Eos (auto) 0.1 (0-0.6) 10^3/ul Absolute Basos (auto) 0 (0-0.2) 10^3/ul Absolute Nucleated RBC 0 10^3/ul Nucleated RBC % 0.2 INR (Anticoag Therapy) 0.94 (0.77-1.02) APTT 27.7 (26.0-36.3) seconds Sodium 138 (133-145) mmol/L Potassium 4.0 (3.5-5.0) mmol/L Chloride 101 (101-111) mmol/L Carbon Dioxide 28 (22-32) mmol/L Anion Gap 9 (2-11) mmol/L BUN 26 H (6-24) mg/dL Creatinine 0.82 (0.51-0.95) mg/dL Est GFR ( Amer) 89.4 (>60) Est GFR (Non-Af Amer) 69.5 (>60) BUN/Creatinine Ratio 31.7 H (8-20) Glucose 89 (70-100) mg/dL Lactic Acid (0.5-2.0) mmol/L Calcium 9.6 (8.6-10.3) mg/dL Magnesium 2.1 (1.9-2.7) mg/dL Total Bilirubin 0.60 (0.2-1.0) mg/dL AST 33 (13-39) U/L ALT 29 (7-52) U/L Alkaline Phosphatase 61 (34-104) U/L Troponin I 0.01 (<0.04) ng/mL Total Protein 7.3 (6.4-8.9) g/dL Albumin 4.4 (3.2-5.2) g/dL Globulin 2.9 (2-4) g/dL Albumin/Globulin Ratio 1.5 (1-3) TSH 3.86 (0.34-5.60) mcIU/mL 01/15/ Range/Units 19:15 WBC (3.5-10.8) 10^3/ul RBC (4.0-5.4) 10^6/ul Hgb (12.0-16.0) g/dl Hct (35-47) % MCV (80-97) fL MCH (27-31) pg MCHC (31-36) g/dl RDW (10.5-15) % Plt Count (150-450) 10^3/ul MPV (7.4-10.4) um3 Neut % (Auto) (38-83) % Lymph % (Auto) (25-47) % [place] % (Auto) (0-7) % Eos % (Auto) (0-6) % Baso % (Auto) (0-2) % Absolute Neuts (auto) (1.5-7.7) 10^3/ul Absolute Lymphs (auto) (1.0-4.8) 10^3/ul Absolute Monos (auto) (0-0.8) 10^3/ul Absolute Eos (auto) (0-0.6) 10^3/ul Absolute Basos (auto) (0-0.2) 10^3/ul Absolute Nucleated RBC 10^3/ul Nucleated RBC % INR (Anticoag Therapy) (0.77-1.02) APTT (26.0-36.3) seconds Sodium (133-145) mmol/L Potassium (3.5-5.0) mmol/L Chloride (101-111) mmol/L Carbon Dioxide (22-32) mmol/L Anion Gap (2-11) mmol/L BUN (6-24) mg/dL Creatinine (0.51-0.95) mg/dL Est GFR ( Amer) (>60) Est GFR (Non-Af Amer) (>60) BUN/Creatinine Ratio (8-20) Glucose (70-100) mg/dL Lactic Acid 0.6 (0.5-2.0) mmol/L Calcium (8.6-10.3) mg/dL Magnesium (1.9-2.7) mg/dL Total Bilirubin (0.2-1.0) mg/dL AST (13-39) U/L ALT (7-52) U/L Alkaline Phosphatase (34-104) U/L Troponin I (<0.04) ng/mL Total Protein (6.4-8.9) g/dL Albumin (3.2-5.2) g/dL Globulin (2-4) g/dL Albumin/Globulin Ratio (1-3) TSH (0.34-5.60) mcIU/mL Result Diagrams: 01/15/18 19:15 01/15/18 19:15 Lab Statement: Any lab studies that have been ordered have been reviewed, and results considered in the medical decision making process. - CT CTA chest CT Interpretation: No Acute Changes CT Interpretation Completed By: Radiologist - 1. No CT of evidence of pulmonary embolism. 2. Chronic findings as described above.ED physician has reviewed this report. - EKG 17:50 Cardiac Rate: NL EKG Rhythm: Sinus Rhythm - [address] Segment: Normal Ectopy: None EKG Interpretation: No acute ST changes. Chest Pain Course/Dx - Diagnoses Provider Diagnoses: Chest pain Discharge - Sign-Out/Discharge Documenting (check all that apply): Discharge - Discharge Plan Condition: Improved Disposition: HOME Patient Education Materials: Chest Pain (DC) Referrals: Jasmin Siddiqi MD [Primary Care Provider] - Maddison Ramos MD [Medical Doctor] - Amrit Britton MD [Medical Doctor] - Additional Instructions: PLEASE MAKE AN APPOINTMENT FIRST THING IN THE MORNING TO BE SEEN BY A TRACK LAYING SUPERVISOR WITHIN 1 WEEK PLEASE RETURN IMMEDIATELY TO THE ER IF YOU HAVE ANY WORSENING OR CONCERNING SYMPTOMS PLEASE MAKE AN APPOINTMENT TO BE SEEN BY YOUR PRIMARY CARE DOCTOR WITHIN 1 WEEK - Billing Disposition and Condition Condition: IMPROVED Disposition: HOME The documentation as recorded by the Santiago jeronimo Stephanie accurately reflects the service I personally performed and the decisions made by me, Scott Neves MD.
--- NOTE | 2018-01-17 18:37 | ED ---
INacho Angela, scribed for Scott Neves MD on 01/15/18 at 2310 . Re-Evaluation - Re-Evaluation First Eval Re-Evaluation Time: 23:15 Change: Improved Comment: Pt reports feeling better. She agrees to and understands discharge instructions. Course/Dx - Course Course Of Treatment: Pt is instructed to follow up with a general administrator in 1 week. Pt agrees to and understands discharge instructions. No evidence of PE on CT chest angiogram. No abdominal pain or tenderness. - Diagnoses Provider Diagnoses: Chest pain Discharge - Sign-Out/Discharge Documenting (check all that apply): Discharge - discharge to home - Discharge Plan Condition: Improved Disposition: HOME Patient Education Materials: Chest Pain (DC) Referrals: Jasmin Siddiqi MD [Primary Care Provider] - Maddison Ramos MD [Medical Doctor] - Amrit Britton MD [Medical Doctor] - Additional Instructions: PLEASE MAKE AN APPOINTMENT FIRST THING IN THE MORNING TO BE SEEN BY A MEDICAL AFFAIRS DIRECTOR WITHIN 1 WEEK PLEASE RETURN IMMEDIATELY TO THE ER IF YOU HAVE ANY WORSENING OR CONCERNING SYMPTOMS PLEASE MAKE AN APPOINTMENT TO BE SEEN BY YOUR PRIMARY CARE DOCTOR WITHIN 1 WEEK - Billing Disposition and Condition Condition: IMPROVED Disposition: HOME The documentation as recorded by the Nacho jeronimo Angela accurately reflects the service I personally performed and the decisions made by me, Scott Neves MD.
== END 2018-01-15 23:44 | disposition home or self-care (01) ==
LOC: ED 17:50
DX: R07.9 Chest pain, unspecified (principal); Z88.1 Allergy status to other antibiotic agents; I10 Essential (primary) hypertension
CPT/HCPCS: 36415; 71275; 80053; 83605; 83735; 84443; 84484; 85025; 85610; 85730; 93005; 99283; Q9967

== ENCOUNTER 2018-03-27 10:39 | Emergency (ER) | payer MEDICARE, BC ==
[2018-03-27] MEDS ORDERED: NS 0.9% 1000 ML* 1,000 ML IV ONE (11:02)
[2018-03-27] MEDS ORDERED: Metoclopramide IV* 5 MG/ML 2 ML VIAL IV SLOW PU ONE (11:08)
[2018-03-27] MEDS ORDERED: Morphine VIAL* 4 MG/ML VIAL (1 ml vial) IV ONE (11:08)
[2018-03-27 11:58] LABS: ABS Basophils 0 10^3/ul (0-0.2); ABS Eosinophils 0 10^3/ul (0-0.6); ABS Lymphocytes 0.9 10^3/ul (1.0-4.8); ABS Monocytes 0.3 10^3/ul (0-0.8); ABS Neutrophils 4.6 10^3/ul (1.5-7.7); ABS Nucleated RBC 0 10^3/ul; Eosinophil % 0.1 % (0-6); Hematocrit 40 % (35-47); Hemoglobin 13.4 g/dl (12.0-16.0); Mean Corpuscular HGB Conc 34 g/dl (31-36); Mean Corpuscular Hemoglobin 34 pg (27-31); Mean Corpuscular Volume 102 fL (80-97); Nucleated Red Blood Cells % 0.1; Platelet Count 162 10^3/ul (150-450); Red Blood Count 3.93 10^6/ul (4.0-5.4); Red Cell Distribution Width 14 % (10.5-15); White Blood Count 5.8 10^3/ul (3.5-10.8)
[2018-03-27 12:00] LABS: Urine Appearance Clear; Urine Blood Negative (Negative); Urine Color Yellow; Urine Ketones Trace (Negative); Urine Protein Negative (Negative); Urine Specific Gravity 1.015 (1.010-1.030); Urine Urobilinogen Negative (Negative)
[2018-03-27 12:18] LABS: EGFR Non-African American 75.7 (>60)
--- NOTE | 2018-03-27 12:43 | RAD ---
INDICATION: Abdominal pain. COMPARISON: Comparison is made with a prior abdominal ultrasound from December 11, [address] of the abdomen and pelvis from January 18, 2018. TECHNIQUE: Multiple real-time, color Doppler and Doppler tracings of the abdominal aorta were obtained. FINDINGS: There is a aortobiiliac endovascular stent graft present. The graft appears patent. There is a fusiform shaped aneurysm sac present in the mid and distal abdominal aorta which measures 4.0 cm AP by 4.3 cm transverse and 8.8 cm in length. This appears slightly more prominent than on the prior exam and previously measured 3.1 x 4.0 x 7.9 cm. In addition there is arterial flow within the aneurysm sac consistent with an endoleak as previously noted. The graft distal to the aortic bifurcation is obscured by overlying bowel gas. IMPRESSION: THE PATIENT IS STATUS POST PLACEMENT OF AN ENDOVASCULAR AORTIC STENT GRAFT. THE ANEURYSM SAC APPEARS SLIGHTLY MORE PROMINENT THAN ON THE PRIOR EXAM AND THERE IS A PROMINENT ENDOGRAFT GRAFT LEAK. RECOMMEND A MULTIPHASE CT ANGIOGRAM OF THE ABDOMINAL AORTA GRAFT PROTOCOL FOR FURTHER EVALUATION.
--- NOTE | 2018-03-27 13:22 | ED ---
Nacho Louise Angela, scribed for Johnathan Florentino MD on 03/27/18 at 1117 . Abdominal Pain/Female - HPI Summary HPI Summary: This pt is a 68 y/o female [facility] [place] sudden onset of abdominal pain at approximately 08:30. Pt reports she was swimming at the [facility] and had sudden onset of abd pain. She describes lower abd pain. Pt notes that by the time she was in the shower she had a brief syncopal episode. Unknown head strike. She states she sat on a bench in the bathroom and vomited. Pt reports that today's abd pain is similar to her abdominal aortic aneurysm in 2017. Pt notes the AAA was repaired. Her vascular surgeon is Dr. Lerma ([facility]), phone #: [phone]. - History of Current Complaint Chief Complaint: EDAbdPain Stated Complaint: ABD PAIN,SYNCOPE 8:45 AM Time Seen by Provider: 03/27/18 11:01 Hx Obtained From: Patient Onset/Duration: Sudden Onset, Still Present Timing: Constant Severity Currently: Moderate Pain Intensity: 5 Pain Scale Used: 0-10 Numeric Location: Other - lower abd Radiates: No Aggravating Factor(s): Nothing Alleviating Factor(s): Nothing Associated Signs and Symptoms: Positive: Nausea, Vomiting, Other: - POS: syncope. Negative: Fever, Chest Pain, Back Pain Allergies/Adverse Reactions: Allergies Allergy/AdvReac Type Severity Reaction Status Date / Time levofloxacin [From Levaquin] Allergy See Comment Verified 03/27/18 10:53 Home Medications: Home Medications Acetaminophen TAB* [Tylenol TAB*] 650 mg PO Q6H PRN 03/27/18 [History Confirmed 03/27/18] PMH/Surg Hx/FS Hx/Imm Hx Endocrine/Hematology History: Denies: Hx Diabetes, Hx Thyroid Disease Cardiovascular History: Reports: Hx Aneurysm - AAA diagnosed 5 yrs ago, resent dissecting AAA repair, Hx Angina, Hx Hypertension Denies: Hx Pacemaker/ICD Respiratory History: Denies: Hx Asthma, Hx Chronic Obstructive Pulmonary Disease (COPD) GI History: Denies: Hx Ulcer History: Reports: Hx Kidney Stones, Other Problems/Disorders - pessary for pelvic organ prolapse Denies: Hx Renal Disease Musculoskeletal History: Denies: Hx Rheumatoid Arthritis, Hx Osteoporosis Sensory History: Reports: Hx Contacts or Glasses Denies: Hx Hearing Aid Opthamlomology History: Reports: Hx Contacts or Glasses Psychiatric History: Reports: Hx Panic Disorder - HAD ONE EPISODE - Cancer History Hx Chemotherapy: No Hx Radiation Therapy: No - Surgical History Surgery Procedure, Year, and Place: 2003&2008 ROTATOR CUFF SURGERY W/ANCHOR IN BILATERAL SHOULDERS2010 ANKLE SX, 1976 BONE SPURS REMOVED KIERAN ANKLES, 1990 LAMINOTOMY L4-L5, 1995 HERNIA REPAIR, LITHOTRIPSY. AAA- STENT PLACEMENT Infectious Disease History: No Infectious Disease History: Denies: Hx Hepatitis, Hx Human Immunodeficiency Virus (HIV), Traveled Outside the [place] in Last 30 Days - Family History Known Family History: Positive: Hypertension - Positive to sister - Social History Alcohol Use: Rare Hx Substance Use: No Substance Use Type: Reports: None Hx Tobacco Use: No Smoking Status (MU): Never Smoked Tobacco Review of Systems Negative: Fever Eyes: Negative ENT: Negative Negative: Chest Pain Negative: Shortness Of Breath Positive: Abdominal Pain, Vomiting, Nausea Positive: Syncope All Other Systems Reviewed And Are Negative: Yes Physical Exam - Summary Physical Exam Summary: VITAL SIGNS: Reviewed. GENERAL: Patient is a well-developed and nourished female who is lying comfortable in the stretcher. Patient is in acute distress secondary to pain. HEAD AND FACE: Normocephalic and atraumatic. EYES: PERRLA, EOMI x 2, No injected conjunctiva. EARS: Hearing grossly intact. Ear canals and tympanic membranes are WNL. MOUTH: Oropharynx within normal limits. NECK: Supple, trachea is midline, no adenopathy, no JVD. CHEST: Symmetric, no tenderness at palpation LUNGS: Clear to auscultation bilaterally. No wheezing or crackles. CVS: RRR, S1 and S2 present, no murmurs or gallops appreciated. ABDOMEN: Soft. Diffuse abdominal tenderness. Slight abdominal distention. Positive bowel sounds. No rebound no guarding, and no masses palpated. No abdominal bruits or pulsations. EXTREMITIES: FROM in all major joints, no edema, no cyanosis or clubbing. NEURO: Alert and oriented x 3. No acute neurological deficits. Speech is normal. SKIN: Dry and warm Triage Information Reviewed: Yes Vital Signs On Initial Exam: Initial Vitals Temp Pulse Resp BP Pulse Ox 97 F 56 16 104/65 98 03/27/18 10:48 03/27/18 10:48 03/27/18 10:48 03/27/18 10:48 03/27/18 10:48 Vital Signs Reviewed: Yes Diagnostics - Vital Signs Vital Signs Temp Pulse Resp BP Pulse Ox 03/27/18 10:48 97 F 56 16 104/65 98 - Laboratory Lab Results: Lab Results 03/27/18 03/27/18 03/27/18 Range/Units 11:27 11:27 11:27 WBC 5.8 (3.5-10.8) 10^3/ul RBC 3.93 L (4.0-5.4) 10^6/ul Hgb 13.4 (12.0-16.0) g/dl Hct 40 (35-47) % MCV 102 H (80-97) fL MCH 34 H (27-31) pg MCHC 34 (31-36) g/dl RDW 14 (10.5-15) % Plt Count 162 (150-450) 10^3/ul MPV 8.0 (7.4-10.4) um3 Neut % (Auto) 79.7 (38-83) % Lymph % (Auto) 15.0 L (25-47) % [place] % (Auto) 4.5 (0-7) % Eos % (Auto) 0.1 (0-6) % Baso % (Auto) 0.7 (0-2) % Absolute Neuts (auto) 4.6 (1.5-7.7) 10^3/ul Absolute Lymphs (auto) 0.9 L (1.0-4.8) 10^3/ul Absolute Monos (auto) 0.3 (0-0.8) 10^3/ul Absolute Eos (auto) 0 (0-0.6) 10^3/ul Absolute Basos (auto) 0 (0-0.2) 10^3/ul Absolute Nucleated RBC 0 10^3/ul Nucleated RBC % 0.1 Sodium 142 (139-145) mmol/L Potassium 3.9 (3.5-5.0) mmol/L Chloride 104 (101-111) mmol/L Carbon Dioxide 28 (22-32) mmol/L Anion Gap 10 (2-11) mmol/L BUN 28 H (6-24) mg/dL Creatinine 0.76 (0.51-0.95) mg/dL Est GFR ( Amer) 97.3 (>60) Est GFR (Non-Af Amer) 75.7 (>60) BUN/Creatinine Ratio 36.8 H (8-20) Glucose 126 H (70-100) mg/dL Calcium 9.3 (8.6-10.3) mg/dL Magnesium 2.1 (1.9-2.7) mg/dL Total Bilirubin 0.60 (0.2-1.0) mg/dL AST 38 (13-39) U/L ALT 38 (7-52) U/L Alkaline Phosphatase 63 (34-104) U/L Troponin I 0.01 (<0.04) ng/mL C-Reactive Protein < 1.00 (< 5.00) mg/L Total Protein 7.0 (6.4-8.9) g/dL Albumin 4.2 (3.2-5.2) g/dL Globulin 2.8 (2-4) g/dL Albumin/Globulin Ratio 1.5 (1-3) Lipase 19 (11.0-82.0) U/L Urine Color Yellow Urine Appearance Clear Urine pH 6.0 (5-9) Ur Specific [place] 1.015 (1.010-1.030) Urine Protein Negative (Negative) Urine Ketones Trace A (Negative) Urine Blood Negative (Negative) Urine Nitrate Negative (Negative) Urine Bilirubin Negative (Negative) Urine Urobilinogen Negative (Negative) Ur Leukocyte Esterase Negative (Negative) Urine Glucose Negative (Negative) Result Diagrams: 03/27/18 11:27 03/27/18 11:27 Lab Statement: Any lab studies that have been ordered have been reviewed, and results considered in the medical decision making process. - Ultrasound No standard instances Ultrasound Interpretation: Positive (See Comments) - Abdominal Aorta US IMPRESSION: The patient is status post placement of an endovascular aortic stent graft. The aneurysm sac appears slightly more prominent than on the prior exam and there is a prominent endograft graft leak. Recommend a multiphase CT angiogram of the abdominal aorta graft protocol for further evaluation. Dr. Florentino has reviewed this radiology report. Ultrasound Interpretation Completed By: Radiologist - EKG 11:09 Cardiac Rate: Bradycardia - at 51 bpm EKG Rhythm: Sinus Bradycardia EKG Interpretation: No ST elevations. Hyperacute T wave V3-V5. Re-Evaluation - Re-Evaluation First Eval Re-Evaluation Time: 13:05 Comment: I discussed plan to transfer with the pt. Pt understands and agrees. Abdominal Pain Fem Course/Dx - Course Course Of Treatment: This patient is a 68-year-old female who presents to the emergency department with a chief complaint of having diffuse abdominal pain and she had syncopal episode. Past medical history significant for hypertension , abdominal aortic aneurysm status post repair. Blood work without any significant abnormality, H&H is stable, BUN is 28, troponin is 0.01 and urinalysis is negative for UTI. Abdominal ultrasound impression: The patient is status post placement of an endovascular aortic stent graft. The aneurysm sac appears slightly more prominent that one the prior exam and there is a prominent endograft leak. I discussed physical exam and findings with Dr. Lerma (vascular surgeon) , he recommends for the patient to be transferred to the emergency room at [facility]. Therefore I discussed the case with Dr. Corona ( attending physician in the emergency room) and he accepted the patient for transfer. At this time the patient is hemodynamically stable, she is alert and oriented 3, and her H&H is stable. Therefore the patient be transferred to [facility] via [facility]. I also discussed the plan with the patient and she agrees. - Diagnoses Provider Diagnoses: Leakage of aortic graft, Status post abdominal aortic aneurysm repair, History of repair of aneurysm of abdominal aorta using endovascular stent graft - Provider Notifications Discussed Care Of Patient With: Dr. Lerma Time Discussed With Above Provider: 13:01 Instructed by Provider To: Other - I discussed pt care with Dr. Lerma, vascular surgeon, who reports the pt needs to be transferred to [facility]. [13:09] I spoke with the Transfer Center at [facility] and Dr. Corona accepted the pt for transfer to [facility]. Discharge - Sign-Out/Discharge Documenting (check all that apply): Discharge/Admit/Transfer - Transfer - Discharge Plan Condition: Stable Disposition: TRANS HIGHER LVL OF CARE FAC Discharge Disposition Comment: [facility] Referrals: Jasmin Siddiqi MD [Primary Care Provider] - - Billing Disposition and Condition Condition: STABLE Disposition: Trans Higher Lvl of Care Fac The documentation as recorded by the Nacho jeronimo Angela accurately reflects the service I personally performed and the decisions made by me, Johnathan Florentino MD.
[2018-03-27 13:23] VITALS: BP 113/69
== END 2018-03-27 15:26 | disposition short-term general hospital (02) ==
LOC: ED 10:39
DX: T82.330A Leakage of aortic (bifurcation) graft (replacement), initial encounter (principal); Z88.3 Allergy status to other anti-infective agents
CPT/HCPCS: 36415; 76775; 80053; 81003; 83690; 83735; 84484; 85025; 86140; 93005; 96361; 96374; 96375; 99284; J2270; J2765